=== PATIENT | male | born 1975 | race Caucasian/White ===

== ENCOUNTER → 2024-08-04 | Day surgery (SDC) | payer OTHER ==
[~2024-08-04] MED LIST: CELEBREX100 MG PO; CETIRIZINE HCL10 MG; DYMISTA NASAL S23 GM INH; K-DUR10 MEQ PO; LIDOCAINE HCL 2% LOCAL INJ 5 ML SDV VIAL INJ ONE; MAGNESIUM OXID400 MG PO; MULTI-VITAMIN1 EACH PO; OMEPRAZOLE40 MG PO; PROPOFOL IV EMULSION 10 MG/ML 20 ML VIAL ONE; TRAZODONE HCL50 MG PO; VITAMIN D250 MCG PO
[2024-08-04] MEDS: LACTATED RINGER'S 1,000 ML ONE (07:47)
[2024-08-04 09:55] VITALS: TEMP 97.5
[2024-08-04 10:25] VITALS: BP 138/97; PULSE 77; RESP 16; O2SAT 97
== END | disposition home or self-care (01) ==
LOC: ENDO 06:47 → EDBD 12:00
PROVIDERS: ATTEND Internal Medicine Gastroenterology
DX: K22.2 Esophageal obstruction (principal); K29.70 Gastritis, unspecified, without bleeding; K31.89 Other diseases of stomach and duodenum; K44.9 Diaphragmatic hernia without obstruction or gangrene; K62.5 Hemorrhage of anus and rectum; R03.0 Elevated blood-pressure reading, without diagnosis of hypertension; F17.290 Nicotine dependence, other tobacco product, uncomplicated; Z01.810 Encounter for preprocedural cardiovascular examination; Z79.899 Other long term (current) drug therapy
CPT/HCPCS: 43239; 43249; 93005; J2003; J2704; J7121; 43450